=== PATIENT | female | born 1980 | race Caucasian/White ===

== ENCOUNTER 2021-09-25 11:03 | Emergency (ER) | payer OTHER ==
[~2021-09-25 11:03] MED LIST: BACTRIM DS TAB1 EACH PO; CEPHALEXIN500 MG PO; LEVAQUIN750 MG PO; NORCO 5-325 TA1 EACH PO; PERCOCET 5-3251 EACH PO; PROMETHAZINE/C120 ML PO
[2021-09-25 12:21] LABS: BASOPHIL 0.5 % (0-2); EOSINOPHIL 2.9 % (0-5); HCT 36.7 % (37.0-47.0); HGB 12.6 g/dl (12.5-16.0); LYMPHOCYTE 37.1 % (15-48); MCH 33.3 pg (25.0-31.0); MCHC 34.3 g/dL (32.0-36.0); MCV 97.1 fL (78.0-100.0); MONOCYTE 4.1 % (0-12); MPV 10.4 fL (6.0-9.5); NEUTROPHIL 55.1 % (41-80); NRBC 0; PLT 274 K/uL (150-400); RBC 3.78 M/uL (4.20-5.40); RDW 13.1 % (11.5-14.0); WBC 9.2 K/uL (4.0-10.5)
[2021-09-25 12:43] LABS: BUN/CREAT RATIO (CALC) 17.4 RATIO; CREATININE 0.92 mg/dL (0.51-0.95); POTASSIUM 3.9 mmol/L (3.5-5.1)
[2021-09-25 12:49] LABS: BILIRUBIN NEGATIVE (NEGATIVE); BLOOD 1+ Ery/uL (NEGATIVE); COLOR YELLOW (YELLOW); GLUCOSE (U) NORMAL (NORMAL); LEUKOCYTES NEGATIVE Leu/uL (NEGATIVE); NITRITE POSITIVE (NEGATIVE); PROTEIN NEGATIVE (NEGATIVE); SPECIFIC GRAVITY >=1.030 (1.001-1.030); UROBILINOGEN 0.2 mg/dL (0.2-1.0); pH 5.5 (5.0-9.0)
[2021-09-25 13:02] LABS: CLARITY HAZY (CLEAR)
[2021-09-25 13:07] LABS: BACTERIA 4+
[2021-09-25 15:55] LABS: ALT 21 U/L (14-59); AMYLASE 46 U/L (25-115); AST 18 U/L (15-37); LIPASE 125 U/L (73-393)
[2021-09-25] MEDS ORDERED: BACTRIM DS TAB1 EACH PO (18:21)
[2021-09-25] MEDS ORDERED: ULTRAM50 MG PO (18:22)
[2021-09-25] MEDS ORDERED: ONDANSETRON HCL4 MG PO (18:22)
== END 2021-09-25 19:00 | disposition home or self-care (01) ==
LOC: FER 11:03
PROVIDERS: Nurse Practitioner Family
DX: D25.0 Submucous leiomyoma of uterus (principal); N39.0 Urinary tract infection, site not specified; F17.210 Nicotine dependence, cigarettes, uncomplicated
CPT/HCPCS: 36415; 76830; 80048; 81001; 82150; 83690; 84450; 84460; 85025; 87076; 87088; 87186; J0696; J1170; J1885; J2405; J7030; Q9967